=== PATIENT | female | born 1935 | race Caucasian/White ===

== ENCOUNTER 2017-05-18 18:09 | Emergency (ER) | payer OTHER, MEDICARE ==
[~2017-05-18] VITALS: Ht 160 cm; Wt 58.0 kg
[~2017-05-18 18:09] MED LIST: NAPROSYN250 MG OR; NO HOME MEDS; ULTRAM50 M1 OR
[2017-05-18] MEDS ORDERED: NAPROSYN500 MG PO (19:58)
[2017-05-18] MEDS ORDERED: FLEXERIL PO (19:58)
[2017-05-18 20:16] VITALS: BP 118/71
== END 2017-05-18 20:16 | disposition home or self-care (01) | DRG 552 ==
LOC: ED 18:09
DX: S13.9XXA Sprain of joints and ligaments of unspecified parts of neck, initial encounter (principal); V48.5XXA Car driver injured in noncollision transport accident in traffic accident, initial encounter

== ENCOUNTER 2017-10-08 14:14 | Emergency (ER) | payer OTHER, MEDICARE ==
[~2017-10-08] VITALS: Ht 160 cm; Wt 56.8 kg
[~2017-10-08 14:14] MED LIST changes: +FLEXERIL PO; +NAPROSYN500 MG PO
[2017-10-08] MEDS ORDERED: ANTIVERT PO (15:03)
[2017-10-08] MEDS ORDERED: NAPROSYN500 MG PO (16:38)
[2017-10-08 16:50] VITALS: BP 141/70
[2017-10-08] MEDS ORDERED: FLEXERIL PO (16:54)
== END 2017-10-08 16:50 | disposition home or self-care (01) | DRG 563 ==
LOC: ED 14:14
DX: S43.004A Unspecified dislocation of right shoulder joint, initial encounter (principal); V09.00XA Pedestrian injured in nontraffic accident involving unspecified motor vehicles, initial encounter; Y93.89 Activity, other specified; Y92.481 Parking lot as the place of occurrence of the external cause

== ENCOUNTER 2018-12-28 10:53 | Emergency (ER) | payer MEDICARE ==
[~2018-12-28] VITALS: Ht 160 cm; Wt 59.1 kg
[~2018-12-28 10:53] MED LIST changes: +ANTIVERT PO
[2018-12-28 12:34] VITALS: BP 153/69
== END 2018-12-28 12:34 | disposition home or self-care (01) ==
LOC: ED 10:53
DX: S00.31XA Abrasion of nose, initial encounter (principal); W01.0XXA Fall on same level from slipping, tripping and stumbling without subsequent striking against object, initial encounter

== ENCOUNTER 2023-03-19 18:27 | Inpatient (IN) | payer MEDICARE ==
[~2023-03-19] VITALS: Ht 160 cm; Wt 64.0 kg
[~2023-03-19 18:27] MED LIST changes: +PERCOCET 5/325M1 TAB PO
[2023-03-19 18:35] VITALS: BP 159/72
[2023-03-19 18:59] LABS: BASO% 0.2 % (0-3); HEMATOCRIT 37.6 % (37.0-47.0); HEMOGLOBIN 12.4 g/dl (12.0-16.0); IMMATURE GRANULOCYTES 0.2 % (0.0-5.0); LYMPH% 9.1 % (15-41); MEAN CELL VOLUME 92.2 fL CALC (80.0-100.0); MEAN CORPUSCULAR HGB 30.4 pG CALC (26.0-32.0); NEUT# 9.26 thou/uL (2.00-7.15); NEUT% 85.5 % (42-76); RED BLOOD COUNT 4.08 mill/uL (4.20-5.60); RED CELL DISTRI WIDTH 12.1 % (11.5-15.5)
[2023-03-19 19:14] LABS: ALBUMIN 4.7 g/dL (3.2-5.0); ALKALINE PHOSPHATASE 89 u/l (38-126); ANION GAP 15 (6-22 (CALC)); BUN 20 mg/dL (8-23); BUN/CREATININE RATIO 24 (12-20 (CALC)); CARBON DIOXIDE 24 mmol/l (22-30); CHLORIDE 106 mmol/l (95-108); CREATININE 0.9 mg/dL (0.5-1.0); GFR FOR AFR.AMER. > 60 ML/MIN (>=60 (CALC)); GFR OTHER RACES 59 ML/MIN (>=60 (CALC)); POTASSIUM 4.2 mmol/l (3.5-5.1); SODIUM 141 mmol/l (137-146)
[2023-03-19 19:16] LABS: BILIRUBIN, TOTAL 0.6 mg/dL (0.02-1.3); SGOT/AST 85 u/l (9-36)
[2023-03-19 19:21] LABS: CPK > 3200 u/l (30-135)
[2023-03-19 20:37] VITALS: BP 156/70
[2023-03-19] MEDS ORDERED: XANAX0.5 MG PO (20:38)
[2023-03-19] MEDS ORDERED: FISH OIL1000 M1 PO (20:38)
[2023-03-19 20:52] LABS: URINE BILIRUBIN - DIPSTICK Negative (NEGATIVE); URINE BLOOD DIPSTICK Moderate (NEGATIVE); URINE GLUCOSE - DIPSTICK Negative (NEGATIVE); URINE KETONE Negative (NEGATIVE); URINE LEUK ESTERASE Negative (NEGATIVE); URINE NITRITE - DIPSTICK Negative (Negative); URINE PROTEIN - DIPSTICK Negative (NEG-TRACE); URINE UROBILINOGEN - DIPSTICK 0.2 E.U./dL (0.2)
[2023-03-19 20:53] LABS: URINE COLOR Yellow
[2023-03-19 21:01] VITALS: BP 126/70
[2023-03-19 21:01] LABS: URINE RBC 0-2 RBC/hpf (0-5)
[2023-03-19 21:31] VITALS: BP 145/66
[2023-03-19 22:02] VITALS: BP 166/62
[2023-03-19] MEDS ORDERED: VALSARTAN80 MG PO (22:10)
[2023-03-19] MEDS ORDERED: ROSUVASTATIN CA40 MG (22:12)
[2023-03-20] VITALS (7 sets, daily range): BP systolic 138–148; BP diastolic 55–69
[2023-03-20 06:51] LABS: BASO% 0.4 % (0-3); EOS% 0.5 % (0-8); HEMATOCRIT 34.1 % (37.0-47.0); HEMOGLOBIN 11.4 g/dl (12.0-16.0); IMMATURE GRANULOCYTES 0.1 % (0.0-5.0); LYMPH% 25.7 % (15-41); MEAN CELL VOLUME 93.4 fL CALC (80.0-100.0); MEAN CORPUSCULAR HGB 31.2 pG CALC (26.0-32.0); MEAN CORPUSCULAR HGB CONC 33.4 g/dL CAL (32.0-36.0); MONO% 6.9 % (2-13); NEUT# 4.84 thou/uL (2.00-7.15); NEUT% 66.4 % (42-76); RED BLOOD COUNT 3.65 mill/uL (4.20-5.60); RED CELL DISTRI WIDTH 12.3 % (11.5-15.5)
[2023-03-20 07:07] LABS: ANION GAP 11 (6-22 (CALC)); BUN 17 mg/dL (8-23); BUN/CREATININE RATIO 25 (12-20 (CALC)); CARBON DIOXIDE 23 mmol/l (22-30); CHLORIDE 111 mmol/l (95-108); CREATININE 0.7 mg/dL (0.5-1.0); GFR FOR AFR.AMER. > 60 ML/MIN (>=60 (CALC)); GFR OTHER RACES > 60 ML/MIN (>=60 (CALC)); POTASSIUM 4.1 mmol/l (3.5-5.1); SODIUM 140 mmol/l (137-146)
[2023-03-20 14:46] LABS: ANION GAP 10 (6-22 (CALC)); BUN 16 mg/dL (8-23); BUN/CREATININE RATIO 18 (12-20 (CALC)); CARBON DIOXIDE 23 mmol/l (22-30); CHLORIDE 111 mmol/l (95-108); CREATININE 0.9 mg/dL (0.5-1.0); GFR FOR AFR.AMER. > 60 ML/MIN (>=60 (CALC)); GFR OTHER RACES 59 ML/MIN (>=60 (CALC)); POTASSIUM 3.9 mmol/l (3.5-5.1); SODIUM 140 mmol/l (137-146)
[2023-03-20 15:06] LABS: CPK 4119 u/l (30-135)
[2023-03-21] VITALS (7 sets, daily range): BP systolic 138–176; BP diastolic 55–68
[2023-03-21 06:08] LABS: BASO% 0.4 % (0-3); EOS% 1.5 % (0-8); HEMATOCRIT 32.9 % (37.0-47.0); HEMOGLOBIN 11.2 g/dl (12.0-16.0); IMMATURE GRANULOCYTES 0.3 % (0.0-5.0); LYMPH% 30.4 % (15-41); MEAN CELL VOLUME 93.5 fL CALC (80.0-100.0); MEAN CORPUSCULAR HGB 31.8 pG CALC (26.0-32.0); MONO% 6.4 % (2-13); NEUT# 4.09 thou/uL (2.00-7.15); RED BLOOD COUNT 3.52 mill/uL (4.20-5.60); RED CELL DISTRI WIDTH 12.2 % (11.5-15.5)
[2023-03-21 06:27] LABS: ANION GAP 11 (6-22 (CALC)); BUN 16 mg/dL (8-23); BUN/CREATININE RATIO 19 (12-20 (CALC)); CARBON DIOXIDE 23 mmol/l (22-30); CHLORIDE 109 mmol/l (95-108); CREATININE 0.8 mg/dL (0.5-1.0); GFR FOR AFR.AMER. > 60 ML/MIN (>=60 (CALC)); GFR OTHER RACES > 60 ML/MIN (>=60 (CALC)); POTASSIUM 4.1 mmol/l (3.5-5.1); SODIUM 139 mmol/l (137-146)
== END 2023-03-21 12:43 | DRG 566 ==
LOC: ED 18:27 → ED-I 19:34 → ED 19:34 → ED-I 19:40 → ED 21:08 → MS2 21:09
PROVIDERS: Nurse Practitioner; ADMIT Student in an Organized Health Care Education/Training Program; ATTEND Student in an Organized Health Care Education/Training Program
DX: T79.6XXA Traumatic ischemia of muscle, initial encounter (principal); I10 Essential (primary) hypertension; R42 Dizziness and giddiness; W18.39XA Other fall on same level, initial encounter; Y92.009 Unspecified place in unspecified non-institutional (private) residence as the place of occurrence of the external cause
CPT/HCPCS: J1650

== ENCOUNTER 2023-11-25 22:30 | Emergency (ER) | payer MEDICARE ==
[~2023-11-25] VITALS: Ht 160 cm; Wt 68.0 kg
[~2023-11-25 22:30] MED LIST changes: +FISH OIL1000 M1 PO; +ROSUVASTATIN CA40 MG; +VALSARTAN80 MG PO; +XANAX0.5 MG PO
[2023-11-25 22:35] VITALS: BP 144/54
[2023-11-25 23:24] LABS: BASO% 0.5 % (0-3); HEMATOCRIT 36.2 % (37.0-47.0); HEMOGLOBIN 11.4 g/dl (12.0-16.0); IMMATURE GRANULOCYTES 0.2 % (0.0-5.0); LYMPH% 46.2 % (15-41); MEAN CELL VOLUME 94.5 fL CALC (80.0-100.0); MEAN CORPUSCULAR HGB 29.8 pG CALC (26.0-32.0); MEAN CORPUSCULAR HGB CONC 31.5 g/dL CAL (32.0-36.0); NEUT# 2.46 thou/uL (2.00-7.15); NEUT% 41.1 % (42-76); RED BLOOD COUNT 3.83 mill/uL (4.20-5.60); RED CELL DISTRI WIDTH 12.2 % (11.5-15.5)
[2023-11-25 23:38] LABS: ALBUMIN 4.3 g/dL (3.2-5.0); ALKALINE PHOSPHATASE 92 u/l (38-126); ANION GAP 7 (6-22 (CALC)); BILIRUBIN, TOTAL 0.5 mg/dL (0.02-1.3); BUN 21 mg/dL (8-23); BUN/CREATININE RATIO 24 (12-20 (CALC)); CHLORIDE 107 mmol/l (95-108); CREATININE 0.9 mg/dL (0.5-1.0); ESTIMATED GFR 61 ML/MIN (>=90 (CALC)); ETHYL ALCOHOL 0 mg/dl (0-30); POTASSIUM 4.5 mmol/l (3.5-5.1); SGOT/AST 25 u/l (9-36); SODIUM 137 mmol/l (137-146); TOTAL PROTEIN 7.8 g/dL (6.3-8.2)
[2023-11-25 23:42] LABS: CARBON DIOXIDE 28 mmol/l (22-30)
[2023-11-25 23:44] LABS: INTERNATIONAL NORMALIZED RATIO 1.1 RATIO (0.7-1.3)
[2023-11-25 23:46] LABS: PROTHROMBIN TIME 10.2 SECONDS (9.0-12.5)
[2023-11-26] VITALS (7 sets, daily range): BP systolic 139–179; BP diastolic 50–78
[2023-11-26 00:22] LABS: URINE BILIRUBIN - DIPSTICK Negative (NEGATIVE); URINE BLOOD DIPSTICK Negative (NEGATIVE); URINE GLUCOSE - DIPSTICK Negative (NEGATIVE); URINE KETONE Negative (NEGATIVE); URINE LEUK ESTERASE Negative (NEGATIVE); URINE NITRITE - DIPSTICK Negative (Negative); URINE PH 6.5 (4.5-8.0); URINE PROTEIN - DIPSTICK Negative (NEG-TRACE); URINE UROBILINOGEN - DIPSTICK 0.2 E.U./dL (0.2)
[2023-11-26 00:25] LABS: URINE COLOR Yellow
[2023-11-26] MEDS ORDERED: DICYCLOMINE HCL20 MG PO (02:01)
[2023-11-26] MEDS ORDERED: PHENERGAN25 MG PO (02:01)
== END 2023-11-26 03:40 | disposition home or self-care (01) ==
LOC: ED 22:30 → ED-I 23:50 → ED 11-26 03:40
PROVIDERS: Family Medicine
DX: R41.0 Disorientation, unspecified (principal); T42.4X5A Adverse effect of benzodiazepines, initial encounter; I10 Essential (primary) hypertension; E78.5 Hyperlipidemia, unspecified; Y92.009 Unspecified place in unspecified non-institutional (private) residence as the place of occurrence of the external cause
CPT/HCPCS: Q9967